=== PATIENT | female | born 1985 | race Caucasian/White ===

== ENCOUNTER → 2018-08-09 15:17 | Outpatient (CLI) | payer OTHER, BC, SELFPAY | PROVIDERS: PCP Family Medicine; Visit Provider Obstetrics & Gynecology | DX: O20.9 Hemorrhage in early pregnancy, unspecified (principal) | CPT/HCPCS: 36415; 84702 ==

== ENCOUNTER → 2018-08-13 12:36 | Outpatient (CLI) | payer OTHER, BC, SELFPAY ==
[2018-08-13 15:22] LABS: HCG Quantitative /Beta subunit 57.09 mIU/mL
== END ==
PROVIDERS: PCP Family Medicine; Visit Provider Obstetrics & Gynecology
DX: O20.9 Hemorrhage in early pregnancy, unspecified (principal)
CPT/HCPCS: 36415; 84702

== ENCOUNTER → 2019-05-17 17:06 | Outpatient (CLI) | payer BC, SELFPAY ==
[2019-05-17 17:51] LABS: Add Manual Diff / Slide Review NO; Basophils Absolute Auto 0 /uL (0-100); Basophils Percent Auto 0.4 % (0-2); Eosinophils Absolute Auto 300 /uL (0-450); Hematocrit 39.5 % (36-46); Hemoglobin 13.6 g/dL (12.0-16.0); Lymphocytes Absolute Auto 1800 /uL (1100-4500); Lymphocytes Percent Auto 28.4 % (25-40); Mean Corpuscular HGB Conc 34.3 % (30-36); Mean Corpuscular Hemoglobin 30.3 PG (26-34); Mean Corpuscular Volume 88.1 fL (80-100); Monocytes Absolute Auto 400 /uL (0-900); Monocytes Percent Auto 6.7 % (3-14); Neutrophils Absolute Auto 3800 /uL (1500-7000); Neutrophils Percent Auto 59.5 % (50-75); Platelet Count 217 X10^3/uL (150-400); Red Blood Cell Count 4.48 X10^6/uL (4.0-5.2); Red Cell Distribution Width 12.8 % (11.6-14.8); White Blood Cell Count 6.4 X10^3/uL (4.5-11.0)
[2019-05-17 18:21] LABS: Alanine Aminotransferase 20 IU/L (<35); Albumin 4.3 g/dL (3.5-5.0); Albumin Globulin Ratio 1.3 (1.0-2.8); Alkaline Phosphatase 34 U/L (38-126); Aspartate Aminotransferase 25 IU/L (14-36); BUN Creatinine Ratio 20.3 (6-22); Bilirubin Total 0.4 mg/dL (0.2-1.3); Blood Urea Nitrogen 12 mg/dL (7-17); Calcium 9.3 mg/dL (8.4-10.2); Carbon Dioxide 27 mmol/L (22-32); Chloride 100 mmol/L (98-107); Estimated Glomerular Filt Rate > 60.0 mL/min (>60); Globulin 3.2 g/dL (1.7-4.1); Glucose 94 mg/dL (70-100); HEMOLYSIS < 15 (0-50); Potassium 4.1 mmol/L (3.4-5.1); Sodium 135 mmol/L (137-145); Total Protein 7.5 g/dL (6.3-8.2)
[2019-05-17 18:34] LABS: Free T3, Triiodothyronine Free 3.18 pg/mL (2.77-5.27); Free T4, Direct Thyroxine 1.02 ng/dL (0.78-2.19)
[2019-05-17 18:47] LABS: TSH w/ Reflex to FT4 2.62 uIU/mL (0.47-4.68)
== END ==
PROVIDERS: PCP Family Medicine; Referring Provider Family Medicine; Visit Provider Family Medicine
DX: N97.9 Female infertility, unspecified (principal)
CPT/HCPCS: 36415; 80053; 84439; 84443; 84481; 85025

== ENCOUNTER → 2019-08-04 15:13 | Outpatient (CLI) | payer BC, SELFPAY ==
[2019-08-04 16:00] LABS: Appearance Urine UA CLEAR; Bilirubin Urine UA NEGATIVE (NEGATIVE); Color Urine UA YELLOW; Glucose Urine UA NEGATIVE (Negative); Ketones Urine UA NEGATIVE (NEGATIVE); Leukocyte Esterase Urine UA NEGATIVE (NEGATIVE); Nitrite Urine UA NEGATIVE (Negative); Occult Blood Urine UA NEGATIVE (Negative); Protein Urine UA NEGATIVE (Negative); Specific Gravity Urine UA <=1.005 (1.000-1.035); Urobilinogen Urine UA 0.2 E.U./dL (0.2)
[2019-08-04 16:03] LABS: pH Urine UA 6.5 (4.5-8.0)
[2019-08-04 16:04] LABS: Add Manual Diff / Slide Review NO; Basophils Absolute Auto 0 /uL (0-100); Basophils Percent Auto 0.3 % (0-2); Eosinophils Absolute Auto 100 /uL (0-450); Eosinophils Percent Auto 1.7 % (2-4); Hematocrit 35.2 % (36-46); Hemoglobin 12.7 g/dL (12.0-16.0); Lymphocytes Absolute Auto 1500 /uL (1100-4500); Lymphocytes Percent Auto 20.5 % (25-40); Mean Corpuscular Hemoglobin 30.9 PG (26-34); Monocytes Absolute Auto 400 /uL (0-900); Monocytes Percent Auto 5.6 % (3-14); Neutrophils Absolute Auto 5400 /uL (1500-7000); Neutrophils Percent Auto 71.9 % (50-75); Platelet Count 205 X10^3/uL (150-400); Red Blood Cell Count 4.09 X10^6/uL (4.0-5.2); Red Cell Distribution Width 12.7 % (11.6-14.8); White Blood Cell Count 7.5 X10^3/uL (4.5-11.0)
[2019-08-04 16:37] LABS: Free T4, Direct Thyroxine 1.12 ng/dL (0.78-2.19)
[2019-08-04 16:51] LABS: Thyroid Stimulating Hormone 2.89 uIU/mL (0.47-4.68)
[2019-08-04 17:08] LABS: Hepatitis B Surface Antigen NEGATIVE s/c (NEGATIVE); Rubella Antibody IgG 15.1 IU/mL (>15)
[2019-08-04 17:11] LABS: HIV 1 & 2 Ab/Ag 4th Gen Combo NEGATIVE (NEGATIVE); Hep C Virus Ab w/Reflex Quant NEGATIVE s/c (NEGATIVE)
[2019-08-05 04:36] LABS: RPR Screen Non Reactive (Non Reactive)
[2019-08-05 10:47] LABS: Varicella IgG Antibody 347 index (Immune >165)
== END ==
PROVIDERS: PCP Family Medicine; Referring Provider Obstetrics & Gynecology; Visit Provider Obstetrics & Gynecology
DX: Z34.91 Encounter for supervision of normal pregnancy, unspecified, first trimester (principal)
CPT/HCPCS: 36415; 80055; 81003; 84439; 84443; 86787; 86803; 86850; 86900; 86901; 87086; 87389

== ENCOUNTER → 2019-08-17 12:40 | Outpatient (CLI) | payer BC, SELFPAY | PROVIDERS: PCP Family Medicine; Referring Provider Obstetrics & Gynecology; Visit Provider Obstetrics & Gynecology | DX: O09.521 Supervision of elderly multigravida, first trimester (principal); Z36.0 Encounter for antenatal screening for chromosomal anomalies | CPT/HCPCS: 36415; 81420 ==

== ENCOUNTER → 2019-09-29 09:33 | Outpatient (CLI) | payer BC, SELFPAY ==
[2019-10-03 20:36] LABS: Gest Age on Col Date 16.4 weeks (.); Insulin Dep Diabetes No (.); OSBR Risk 1IN 10000 (.); Results Report (.); Test Results *Screen Negative* (.)
== END ==
PROVIDERS: PCP Family Medicine; Referring Provider Obstetrics & Gynecology; Visit Provider Obstetrics & Gynecology
DX: Z34.82 Encounter for supervision of other normal pregnancy, second trimester (principal); Z3A.16 16 weeks gestation of pregnancy
CPT/HCPCS: 36415; 82105

== ENCOUNTER → 2019-10-27 07:47 | Outpatient (CLI) | payer BC, SELFPAY ==
--- NOTE | 2019-10-27 07:49 | DI.US.S_ITS ---
PROCEDURE: US OB >= 14 WEEKS FETUS INDICATIONS: ANATOMY OUTSIDE/PRIOR DATING DATA: Last menstrual period (LMP): 06/06/19. LMP-based estimated date of delivery (NAOMIE): 03/12/20 . First dating scan (date and location): 10/27/19 . Estimated date of delivery (NAOMIE) from first dating scan: 03/11/20 . TECHNIQUE: Real-time scanning was performed of the fetus, with image documentation and biometric measurements. Endovaginal scanning: Not performed COMPARISON: [facility], , OB >= 14 WEEKS FETUS, 10/05/2019, 14:49. FINDINGS: General: A single living intrauterine gestation is present. Presentation: Variable including vertex and breech. Placenta: Placental position is posterior , without previa. Amniotic fluid index: 16.8 cm, normal range is 5-24 cm. heart rate: 132 beats per minute. Maternal cervical canal: 3.6 cm long. Normal lower limit is 2.5 cm. biometrics: Biparietal diameter: 4.8 cm, 20 weeks 4 days Head circumference: 18.1 cm, 20 weeks 4 days Abdominal circumference: 15.8 cm, 20 weeks 6 days Femur length: 3.4 cm, 20 weeks 3 days Estimated gestational age from initial scan: not applicable. Composite gestational age from present scan: 20 weeks 4 days Estimated weight and percentile: 371 g, 60th percentile Measurement variability for biometric dating: +/- 7 days from 14 weeks to 15 weeks 6 days gestation, +/- 10 days from 16 weeks to 21 weeks 6 days gestation, +/- 2 weeks from 22 weeks to 27 weeks 6 days gestation, +/- 3 weeks for 28 weeks gestation or later. weight reference: 4500 g or EFW >90/95% is considered macrosomia or large for gestational age. EFW <10% is small for gestational age. EFW 5% or less is considered intra-uterine growth restriction. Anatomic survey: Neuro: Ventricles are non-dilated at less than 10 mm. Cisterna magna is normal at 3-11 mm. Cerebellum is normal in size and morphology. Nuchal skin fold: Normal at less than 6 mm between 14-21 weeks gestational age. Face: Nose and lips, facial profile are normal. Spine: No evidence for spina bifida. Heart: 4-chambered heart is present, with normal ventricular outflow tracts. Intracardiac echogenic focus is noted within the left ventricle. Diaphragm: Diaphragm is intact. Stomach: Left-sided stomach is present. Kidneys: No hydronephrosis. Normal is less than 5 mm in 2nd trimester, less than 7 mm in 3rd trimester. Cord: 3-vessel cord has orthotopic insertion. Bladder: Normal in size. Extremities: All 4 extremities identified. IMPRESSION: Single living intrauterine fetus in variable presentation (including vertex and breech during the time of the examination) Technically nonspecific intracardiac echogenic focus, recommend correlation with aneuploidy screening results Elsewhere, normal anatomic survey Dictated by: Gilbert Gurrola M.D. on 10/27/2019 at 14:07 Approved by: Gilbert Gurrola M.D. on 10/27/2019 at 14:11
== END ==
PROVIDERS: PCP Family Medicine; Referring Provider Obstetrics & Gynecology; Visit Provider Obstetrics & Gynecology
DX: Z34.82 Encounter for supervision of other normal pregnancy, second trimester (principal); Z3A.20 20 weeks gestation of pregnancy
CPT/HCPCS: 76811

== ENCOUNTER → 2019-11-28 12:45 | Outpatient (CLI) | payer BC, SELFPAY ==
[2019-11-28 14:13] LABS: Free T4, Direct Thyroxine 0.85 ng/dL (0.78-2.19)
[2019-11-28 14:27] LABS: Thyroid Stimulating Hormone 2.01 uIU/mL (0.47-4.68)
== END ==
PROVIDERS: PCP Family Medicine; Referring Provider Obstetrics & Gynecology; Visit Provider Obstetrics & Gynecology
DX: O26.899 Other specified pregnancy related conditions, unspecified trimester (principal); E03.9 Hypothyroidism, unspecified; Z67.91 Unspecified blood type, Rh negative
CPT/HCPCS: 36415; 84439; 84443; 86850

== ENCOUNTER → 2019-12-12 07:47 | Outpatient (CLI) | payer BC, SELFPAY ==
[2019-12-12 10:15] LABS: Hematocrit 32.6 % (36-46); Hemoglobin 11.3 g/dL (12.0-16.0)
[2019-12-12 10:48] LABS: GTT (PREG) 1 Hour PP 50gm Dose 101 mg/dL (76-139)
== END ==
PROVIDERS: PCP Family Medicine; Referring Provider Obstetrics & Gynecology; Visit Provider Obstetrics & Gynecology
DX: Z34.82 Encounter for supervision of other normal pregnancy, second trimester (principal); Z3A.26 26 weeks gestation of pregnancy
CPT/HCPCS: 36415; 82950; 85014; 85018; 86850

== ENCOUNTER → 2020-02-07 16:58 | Outpatient (CLI) | payer OTHER, BC, SELFPAY ==
[2020-02-08 13:06] LABS: Strep Grp B PCR NEG for Grp B Strep
== END ==
PROVIDERS: PCP Family Medicine; Visit Provider Obstetrics & Gynecology
DX: Z34.83 Encounter for supervision of other normal pregnancy, third trimester (principal); Z3A.35 35 weeks gestation of pregnancy
CPT/HCPCS: 87653

== ENCOUNTER → 2020-03-02 15:08 | Outpatient (CLI) | payer OTHER, BC, SELFPAY ==
[2020-03-02 15:57] LABS: COVID19 -Nasal RAPID Negative (Negative)
== END ==
PROVIDERS: PCP Family Medicine; Visit Provider Obstetrics & Gynecology
DX: Z01.812 Encounter for preprocedural laboratory examination (principal); Z20.822 Contact with and (suspected) exposure to COVID-19
CPT/HCPCS: 87635

== ENCOUNTER 2020-03-05 05:59 | Inpatient (IN) | payer OTHER, BC, SELFPAY ==
[2020-03-05 06:32] LABS: Add Manual Diff / Slide Review NO; Basophils Absolute Auto 0 /uL (0-100); Basophils Percent Auto 0.5 % (0-2); Eosinophils Absolute Auto 200 /uL (0-450); Eosinophils Percent Auto 1.8 % (2-4); Hematocrit 35.9 % (36-46); Hemoglobin 12.3 g/dL (12.0-16.0); Lymphocytes Absolute Auto 1700 /uL (1100-4500); Lymphocytes Percent Auto 19.8 % (25-40); Mean Corpuscular HGB Conc 34.4 % (30-36); Mean Corpuscular Hemoglobin 30.7 PG (26-34); Mean Corpuscular Volume 89.4 fL (80-100); Monocytes Absolute Auto 500 /uL (0-900); Monocytes Percent Auto 5.8 % (3-14); Neutrophils Absolute Auto 6200 /uL (1500-7000); Neutrophils Percent Auto 72.1 % (50-75); Platelet Count 133 X10^3/uL (150-400); Red Blood Cell Count 4.01 X10^6/uL (4.0-5.2); Red Cell Distribution Width 13.2 % (11.6-14.8); White Blood Cell Count 8.6 X10^3/uL (4.5-11.0)
--- NOTE | 2020-03-05 07:29 | PM.PREOP ---
Pre-operative Note COVID-19 COVID-19 status: Negative Result date/Date tested (Pos, Neg/Pending): 03/02/20 Interval Note History & Physical reviewed/Exam performed by Physician: Yes Changes to H&P: No
[2020-03-05] MEDS: CEFAZOLIN 2 GM/100 ML FROZ.PIGGY IV (09:32)
--- NOTE | 2020-03-05 09:38 | SUR.OPER ---
Supine on Padded OR bed, head on pillow, safety belt at thigh, arms secured on padded arm boards at <90 degrees abduction. Bump under right buttock. Legs uncrossed with pillow under knees, gel pad to heels, tape over blanket to lower legs.
[2020-03-05] MEDS: LACTATED RINGERS 1,000 ML 100 ML IV ×3 (09:40→11:41)
--- NOTE | 2020-03-05 10:08 | SUR.OPER ---
FHT: 140, live of female at 10:01 am.
--- NOTE | 2020-03-05 10:36 | P.OP_ITS ---
Operative Date/Time/Diagnoses Date of procedure: 03/05/20 Time of procedure: 10:36 Pre-op diagnosis: 39 weeks gestation Previous C section Post-op diagnosis: same Procedure & Clinicians Procedure: Procedures Operation Date: 03/05/20 07:45 Actual Procedures Side Surgeon p Section Marie Granados MD Indications: Thirty-nine weeks gestation Previous section Surgeon: Marie Granados Speed Reading Teacher: Sheri Garza Anesthesia Type: Spinal Operative Notes Findings: Live female in the direct occiput posterior presentation Normal uterus, tubes, and ovaries Fascial adhesions Bladder to uterine adhesions Closure Type: primary Specimen(s): other (Placenta, cord blood) Applied: catheter (To continuous drainage) Estimated blood loss (mL): 300 Blood products transfused: none Procedure in detail: The patient was taken to the operating room where she was placed in the seated position. Spinal anesthesia with Duramorph was administered. The patient was then placed in the dorsal supine position with a leftward tilt. She was prepped and draped in the usual sterile fashion. A timeout was performed. After spinal analgesia was found to be adequate, a Pfannenstiel skin incision was made through the previous incision and carried through to the underlying layer fascia. The fascia was nicked in the midline, and the incision extended bilaterally with the Blackwell scissors. There were adhesions in the fascia and these were taken down with the Blackwell scissors and a 10. Blade. The superior aspect of the fascial incision was grasped with a Cruz clamps, elevated, and the underlying rectus muscles dissected off sharply and bluntly. Attention was then turned to the inferior aspect of this incision which in a similar fashion was grasped with a Whiteland clamps, elevated, and the underlying rectus muscles dissected off sharply and bluntly. The rectus muscles were in the midline. The peritoneum was identified, grasped between 2 hemostats, and entered sharply with the Metzenbaum scissors high in the abdominal cavity. This incision was extended superiorly and inferiorly with good visualization of the bladder. The bladder blade was inserted. The vesicouterine peritoneum was identified, grasped with the pickup, and entered sharply with the Metzenbaum scissors. This incision was extended bilaterally, and the bladder flap was created digitally. The bladder blade was reinserted. The lower uterine segment was incised in a transverse fashion with the scalpel. Upon entering the amniotic sac there was moderate amount of clear amniotic fluid. The infant's head was delivered with vacuum assistance. The nose and mouth were suctioned with bulb suction. The remainder of the body delivered without difficulty. The cord was double clamped and cut. The infant was handed off to waiting RN and RT. The placenta was delivered manually. The uterus was cleared of all clots and debris. The uterine incision was repaired with #1 chromic in a running interlocking fashion, and a second layer the same suture was used for an imbricating layer. Hemostasis was achieved. The tubes and ovaries were examined and were found to be normal. The gutters were cleared of all clots and debris. The bladder flap was reapproximated using 2-0 Vicryl in a running fashion. The parietal peritoneum was closed using 2-0 Vicryl in a running fashion. The fascia was reapproximated using 0 Vicryl in a running fashion. The subcutaneous layer was copiously irrigated with warm normal saline. 5 simple interrupted sutures of 3-0 Vicryl were placed to reapproximate the subcutaneous layer. The skin was closed with 4-0 Biosyn in a subcuticular fashion. Steri-Strips were placed. An Aquacell dressing was placed. The uterus was expressed of a small amount of old blood. Sponge, lap, and instrument counts were correct x-2. The patient tolerated the procedure well, and was taken to PACU in stable condition. The early childhood assistant retracted during the dissection of the subcutaneous layer and fascia. The early childhood assistant put traction on the superior and inferior fascia as it was dissected off the rectus muscles. Upon entering the abdominal cavity, the early childhood assistant helped to bluntly dissect the incision. The early childhood assistant retracted bladder down after was dissected off of the uterus with the bladder blade. The early childhood assistant suctioned while the uterus was being entered. The early childhood assistant provided fundal pressure upon delivery of the baby. The early childhood assistant provided retraction on closure of the uterus in 2 layers. The early childhood assistant provided retraction for closure of the peritoneum, fascia, and subcutaneous layer. Complications: none Post-operative Condition: stable Disposition: PACU Plan for aftercare: To the center after recovery
[2020-03-05 10:38] VITALS: BP 88/48; PULSE 67; RESP 15; TEMP 36.5; O2SAT 99
[2020-03-05 10:39] VITALS: BP 91/54; PULSE 66; RESP 15; O2SAT 99
[2020-03-05 10:43] VITALS: BP 96/47; PULSE 63; RESP 14; O2SAT 99
[2020-03-05 10:53] VITALS: BP 94/58; PULSE 63; RESP 12; O2SAT 100
[2020-03-05] MEDS: ONDANSETRON 4 MG/2 ML INJ IV (11:08)
[2020-03-05 11:12] VITALS: BP 105/62; PULSE 57; RESP 10; O2SAT 100
[2020-03-05] MEDS: KETOROLAC 30 MG/ML VIAL IV ×2 (16:20→22:30)
[2020-03-05] MEDS: LANOLIN OINT 7 GM 1 APPLIC TOP (22:20)
[2020-03-06] MEDS: KETOROLAC 30 MG/ML VIAL IV (04:30)
[2020-03-06] MEDS: ACETAMINOPHEN 325 MG TABLET 650 MG PO ×3 (04:30→16:06)
[2020-03-06] MEDS: LEVOTHYROXINE 25 MCG TABLET PO (05:53)
[2020-03-06 06:52] LABS: Hematocrit 32.9 % (36-46); Hemoglobin 11.6 g/dL (12.0-16.0)
[2020-03-06] MEDS: PRENATAL VIT,CALC/IRON/FOLIC 1 TABLET 1 TAB PO (08:08)
[2020-03-06] MEDS: DOCUSATE 250 MG CAPSULE PO (08:08)
[2020-03-06] MEDS: IBUPROFEN 600 MG TABLET PO ×2 (10:24→16:06)
[2020-03-06] MEDS: RHO(D) IMMUNE GLOBULIN 1,500 UNIT SYRINGE 1500 UNIT IM (16:50)
--- NOTE | 2020-03-06 17:46 | P.DS_ITS ---
Discharge Providers Provider Date of admission: 03/05/20 05:59 Discharge Date: 03/06/20 Primary care physician: Sheri Garza DO Consults: 03/05/20 11:35 Consult to Lobster Catcher Routine Comment: Discharge provider: Marie Granados MD Summary Hospital Course Date Patient Seen: 03/06/20 Time Patient Seen: 13:00 Procedures: Thirty-nine weeks gestation Repeat low-transverse section Spinal anesthesia Hospital Course: Patient is a 34-year-old 2 para 2 who presented on March 05, 2020 for a scheduled repeat low-transverse section. She underwent this procedure without complication. Her postoperative course is unremarkable. She is voiding without catheter, tolerating a diet, without nausea or vomiting, and pain well controlled on postop day # 1. Patient and her desire to go home. Peripartum Data Infant Delivery Method: Section Laceration Description: None Episiotomy description: None Procedures: Repeat low-transverse section Spinal anesthesia complications: none [place] 1: Gender: Female Disposition of : home Status at Discharge Cognitive/behavioral status at discharge: oriented Functional status at discharge: independent ambulation Overall status at discharge: patient is progressing back to baseline Time Spent with Patient Time attestation: Total time spent providing and/or coordinating discharge ser vices: Time spent: Less than 30 minutes Objective Labs Result Diagrams: 03/06/20 06:35 Labs: Laboratory Results - last 24 hr 03/06/20 03/06/20 06:35 06:35 Hgb 11.6 L Hct 32.9 L Maternal Bleed Negative Exam Vital Signs (past 8 hours): Oxygen Delivery Method Room Air Narrative Exam Narrative: Generally: Patient is sitting up in bed, nursing infant, no acute distress Lungs: Clear to auscultation bilaterally Cardiovascular: Regular rate and rhythm Fundus: Firm at U -1 Incision: Clean dry and intact with Aquacel dressing Extremities: Trace edema, negative Homans Discharge Plan Discharge Plan Patient Disposition: Home Provider Discharge Comment: Call with fever, chills, redness or drainage around the incision, or bleeding vaginally more than a pad in an hour Ibuprofen 600 mg every 6 hours Tylenol 650 mg every 6 hours Discharge orders & Medications Prescriptions: New oxycodone 5 mg capsule 5 mg PO Q4H PRN (Reason: pain) Qty: 20 RF: 0 Continued levothyroxine 25 mcg tablet 25 mcg PO DAILY Qty: 90 RF: 1 prenat.vits,james,[id number]-[id number] Tablet 1 tab PO DAILY RF: 0 Discontinued valacyclovir 500 mg tablet 500 mg PO BID Qty: 10 RF: 3 pantoprazole 20 mg tablet,delayed release (DR/EC) 40 mg PO DAILY RF: 0 Follow up/Referrals: Marie Granados MD [Physician] - 1 Week (1 week follow up appointment for Aquacell dressing removal and check is scheduled for 03/13@1:45pm. 6 week follow up appointment with Dr. Granados scheduled for April 16@2pm.) Sheri Garza DO [Primary Care Provider] - Diet/Activity/Treatments Diet: Regular Activity: No heavy lifting. Nothing more than baby or a gal milk Skin/Wound/Dressing Care Report to your healthcare provider any signs of infection, such as:: chills, fever, increased pain, unusual drainage and unusual redness Dressing: Do not remove Visit Report/Discharge Packet Instructions: DI for , DI for Prescription Opioid Use Stand Alone Forms: Discharge: Care Discharge Data Primary Care Provider: Sheri Garza
== END 2020-03-06 17:00 | disposition home or self-care (01) | DRG 788 ==
PROVIDERS: Admitting Provider Obstetrics & Gynecology; PCP Family Medicine; Referring Provider Obstetrics & Gynecology; Visit Provider Obstetrics & Gynecology
PROC: 10D00Z1 Extraction of Products of Conception, Low, Open Approach (ICD-10-PCS; CPT 59514; principal; 2020-03-05 07:45)
DX: O34.219 Maternal care for unspecified type scar from previous cesarean delivery (principal); Z3A.39 39 weeks gestation of pregnancy; Z37.0 Single live birth; O99.284 Endocrine, nutritional and metabolic diseases complicating childbirth; E03.9 Hypothyroidism, unspecified
CPT/HCPCS: 36415; 59050; 59510; 59514; 85014; 85018; 85025; 85461; 86850; 86900; 86901; J0690; J1885; J2274; J2405; J2590; J2790; J3010

== ENCOUNTER → 2020-04-18 10:44 | Outpatient (CLI) | payer OTHER, BC, SELFPAY ==
--- NOTE | 2020-04-18 10:45 | DI.US.S_ITS ---
LIMITED ULTRASOUND OF RIGHT BREAST AND AXILLA: 04/18/2020 CLINICAL: Palpable right breast lump. No prior exams were available for comparison. Color flow and real-time ultrasound of the right breast 3 o'clock, and axilla regions were performed. Carmona scale images of the real-time examination were reviewed. No significant abnormalities were seen sonographically in the right breast. Specifically, no finding to correspond to the patient's palpable abnormality. IMPRESSION: PROBABLY BENIGN There is no sonographic correlate to the patient's palpable abnormality and no evidence of malignancy. A follow-up right ultrasound in 6 months is recommended to demonstrate stability. Findings and recommendations were conveyed to the patient at time of exam. This exam was interpreted at Station ID: [id number]. Electronically Signed By: Soledad patton/:04/18/2020 11:40:02 letter sent: Followup Recommended Ultrasound BI-RADS: 3 Probably benign
[2020-04-18 13:15] LABS: Free T4, Direct Thyroxine 1.16 ng/dL (0.78-2.19)
[2020-04-18 16:31] LABS: Thyroid Stimulating Hormone 1.68 uIU/mL (0.47-4.68)
== END ==
PROVIDERS: PCP Family Medicine; Referring Provider Obstetrics & Gynecology; Visit Provider Obstetrics & Gynecology
DX: R92.8 Other abnormal and inconclusive findings on diagnostic imaging of breast (principal); N63.10 Unspecified lump in the right breast, unspecified quadrant; E03.9 Hypothyroidism, unspecified
CPT/HCPCS: 36415; 76642; 84439; 84443

== ENCOUNTER → 2020-11-13 13:34 | Outpatient (CLI) | payer BC, SELFPAY ==
[2020-11-14 11:32] LABS: SARS CoV19 IgG Negative (Negative); SARS-CoV19- IgM Negative (Negative)
== END ==
PROVIDERS: PCP Family Medicine; Referring Provider Family Medicine; Visit Provider Family Medicine
DX: Z20.822 Contact with and (suspected) exposure to COVID-19 (principal)
CPT/HCPCS: 36415; 86769

== ENCOUNTER → 2023-12-02 16:08 | Outpatient (CLI) | payer BC, SELFPAY ==
[2023-12-02 17:13] LABS: Natera Collection Specimen Collected
[2023-12-02 17:50] LABS: Free T4, Direct Thyroxine 1.02 ng/dL (0.78-2.19)
[2023-12-02 18:03] LABS: Thyroid Stimulating Hormone 4.03 uIU/mL (0.47-4.68)
== END ==
PROVIDERS: PCP Registered Nurse; Referring Provider Specialist; Visit Provider Specialist
DX: O09.521 Supervision of elderly multigravida, first trimester (principal); E03.9 Hypothyroidism, unspecified; Z3A.11 11 weeks gestation of pregnancy
CPT/HCPCS: 36415; 84439; 84443

== ENCOUNTER → 2024-01-04 15:34 | Outpatient (CLI) | payer BC, SELFPAY ==
[2024-01-06 20:14] LABS: Gest Age on Col Date 15.9 weeks (.); Insulin Dep Diabetes No (.); OSBR Risk 1IN 4664 (.); Results Report (.); Test Results *Screen Negative* (.)
[2024-01-07 11:47] LABS: PDF SCANNED
== END ==
PROVIDERS: PCP Registered Nurse; Referring Provider Obstetrics & Gynecology; Visit Provider Obstetrics & Gynecology
DX: Z34.82 Encounter for supervision of other normal pregnancy, second trimester (principal)
CPT/HCPCS: 36415; 82105

== ENCOUNTER → 2024-02-08 13:30 | Outpatient (CLI) | payer BC, SELFPAY ==
--- NOTE | 2024-02-08 13:31 | DI.US.S_ITS ---
PROCEDURE: US OB >= 14 WEEKS FETUS INDICATIONS: 20 Week Anatomy Scan OUTSIDE/PRIOR DATING DATA: Last menstrual period (LMP): 09/15/2023. LMP-based estimated date of delivery (NAOMIE): 06/21/2024. First dating scan (date and location): 12/02/2023. Estimated date of delivery (NAOMIE) from first dating scan: 06/17/2024. The calculations are made using the working NAOMIE of 06/21/2024. TECHNIQUE: Real-time scanning was performed of the fetus, with image documentation and biometric measurements. Endovaginal scanning: No COMPARISON: [facility], , OB >= 14 WEEKS FETUS, 02/21/2020, 14:39. FINDINGS: General: A single living intrauterine gestation is present. Presentation: Variable. Placenta: Placental position is anterior , without previa. Amniotic fluid index: 18.4 cm, normal range is 5-24 cm. Single deepest vertical pocket is 5.1 cm. heart rate: 149 beats per minute. Maternal cervical canal: 4.8 cm long. Normal lower limit is 2.5 cm. biometrics: Biparietal diameter: 5.1 cm, 21 week 4 day Head circumference: 18.4 cm, 20 week 6 day Abdominal circumference: 16.5 cm, 21 week 4 day Femur length: 13.2 cm, 19 week 6 day Clinically estimated gestational age: 20 week 6 day Composite gestational age from present scan: 21 week 0 day Estimated weight and percentile: 380 g, 43 percentile Anatomic survey: Neuro: Ventricles are non-dilated at less than 10 mm. Cisterna magna is normal at 3-11 mm. Cerebellum is normal in size and morphology. Nuchal skin fold: Normal at less than 6 mm between 14-21 weeks gestational age. Face: Nose and lips, facial profile are normal. Spine: No evidence for spina bifida. Heart: 4-chambered heart is present, with normal ventricular outflow tracts. Diaphragm: Diaphragm is intact. Stomach: Left-sided stomach is present. Kidneys: No hydronephrosis. Normal is less than 5 mm in 2nd trimester, less than 7 mm in 3rd trimester. Cord: 3-vessel cord has orthotopic insertion. Bladder: Normal in size. Extremities: All 4 extremities identified. IMPRESSION: Single live intrauterine consistent with a 21 week 0 day gestation by current ultrasound Approved by: Jose Enrique Bob M.D. on 02/08/2024 at 16:41
== END ==
PROVIDERS: PCP Registered Nurse; Referring Provider Obstetrics & Gynecology; Visit Provider Obstetrics & Gynecology
DX: Z34.82 Encounter for supervision of other normal pregnancy, second trimester (principal); Z3A.21 21 weeks gestation of pregnancy
CPT/HCPCS: 76811

== ENCOUNTER → 2024-03-24 14:19 | Outpatient (CLI) | payer BC, SELFPAY ==
[2024-03-24 16:17] LABS: Hemoglobin 11.2 g/dL (12.0-16.0)
[2024-03-24 16:58] LABS: GTT (PREG) 1 Hour PP 50gm Dose 131 mg/dL (76-139)
== END ==
PROVIDERS: PCP Registered Nurse; Referring Provider Obstetrics & Gynecology; Visit Provider Obstetrics & Gynecology
DX: Z34.82 Encounter for supervision of other normal pregnancy, second trimester (principal); Z3A.26 26 weeks gestation of pregnancy
CPT/HCPCS: 36415; 82950; 85014; 85018; 86850

== ENCOUNTER → 2024-04-14 11:29 | Outpatient (CLI) | payer BC, SELFPAY ==
[2024-04-14 13:09] LABS: Free T4, Direct Thyroxine 0.79 ng/dL (0.78-2.19)
[2024-04-14 13:23] LABS: Thyroid Stimulating Hormone 2.99 uIU/mL (0.47-4.68)
== END ==
LOC: LAB 11:30
PROVIDERS: PCP Nurse Practitioner Family; Referring Provider Obstetrics & Gynecology; Visit Provider Obstetrics & Gynecology
DX: E03.9 Hypothyroidism, unspecified (principal); Z3A.27 27 weeks gestation of pregnancy
CPT/HCPCS: 36415; 84439; 84443

== ENCOUNTER → 2024-05-05 10:01 | Outpatient (CLI) | payer BC, SELFPAY ==
[2024-05-05 11:47] LABS: HEMOLYSIS < 15 (0-50); Iron 88 ug/dL (37-170)
[2024-05-05 11:57] LABS: Percent Iron Saturation 17 % (15-50); Total Iron Binding Capacity 514 ug/dL (265-497); Transferrin 458 mg/dL (206-381)
== END ==
LOC: LAB 10:01
PROVIDERS: PCP Nurse Practitioner Family; Referring Provider Obstetrics & Gynecology; Visit Provider Obstetrics & Gynecology
DX: Z34.93 Encounter for supervision of normal pregnancy, unspecified, third trimester (principal); Z3A.33 33 weeks gestation of pregnancy
CPT/HCPCS: 36415; 83540; 83550

== ENCOUNTER 2024-05-19 09:52 | Outpatient (CLI) | payer BC, SELFPAY ==
--- NOTE | 2024-05-19 10:21 | PM.OBTRLD ---
Visit Information Visit Information Date of evaluation: 05/19/24 Primary OB Provider: Nelda Brambila Reason for Evaluation: Yes non-stress test non-stress test reason: other (Advanced maternal age) Comments/Additional reasons for admission: 39-year-old 3 para 2 at 35 weeks' gestation here for nonstress test due to advanced maternal age [facility] Medical History (Updated 05/19/24 @ 10:34 by Nelda Brambila MD) IUD (intrauterine device) in place Chicken pox (~1990) Abnormal Pap smear of cervix (~2007) History of anxiety disorder (01/14/16) History of asthma (01/14/16) Surgical History (Updated 12/02/23 @ 16:08 by Nelda Brambila MD) Status post delivery (08/15/16) [place] teeth extracted (~2001) Family History (Updated 08/01/19 @ 13:25 by Christina Porter RN) Mother Hypertension Anxiety Hypothyroid Father Diabetes mellitus Autoimmune disease Grandmother Ovarian cancer Anxiety Grandfather Alzheimer's dementia Grandfather Pancreatic cancer Diabetes mellitus Grandmother Bone cancer Brother Pancreatic abnormality Pancreatitis Social History marital status: number of children: 2 household members: spouse and children lives independently: Yes caregiver/support person: Yes housing: house pets and animals: Yes (dogs, cat, chickens) education level: college (bachelor's degree) occupational status: employed (dental hygenist) current occupational exposures/hazards: Yes special jazmin needs: No travel history: recent (domestic only) seatbelt use: always helmet use: Yes water heater temp set < 120 deg: Yes working smoke detector in home: Yes fire extinguisher in home: Yes carbon monox detector in home: Yes firearms in home: Yes do you feel safe at home: Yes Smoking Status: Former smoker (quit in 19-teens) Tobacco: How many years used: 5 second hand exposure: No alcohol intake: former (~2 beers/week when not not ) substance use type: does not use during the past year weight has: remained stable well-balanced diet: daily or most days daily servings fruits/ve-4 caffeine: Yes (single AM cup coffee) Type(s) of exercise: walking and bicycling Evaluation Evaluation Baseline heart rate: 130 Variability: Moderate (11-25) monitor accelerations: Present Monitor Decelerations: Absent Contraction Frequency (minutes): 0 Category of Tracing: Reactive Status: Category l Diagnosis, Plan/Disposition Final Diagnosis (1) AMA (advanced maternal age) primigravida 35+: Status: Acute (2) History of section complicating : Status: Acute (3) Encounter for supervision of other normal , unspecified trimester: Status: Acute (4) 35 weeks gestation of : Status: Acute Plan/Disposition Plan: Reactive nonstress test patient has appointment in the office coming up OB Disposition: home
== END 2024-05-19 10:26 | disposition home or self-care (01) ==
LOC: LABOR 10:04 → OB 05-20 09:21
PROVIDERS: PCP Nurse Practitioner Family; Referring Provider Student in an Organized Health Care Education/Training Program; Visit Provider Student in an Organized Health Care Education/Training Program
DX: O09.523 Supervision of elderly multigravida, third trimester (principal); O34.219 Maternal care for unspecified type scar from previous cesarean delivery; Z3A.35 35 weeks gestation of pregnancy; O99.283 Endocrine, nutritional and metabolic diseases complicating pregnancy, third trimester; E03.9 Hypothyroidism, unspecified; Z3A.33 33 weeks gestation of pregnancy
CPT/HCPCS: 36415; 59025; 84439; 84443; 85025; G0378; G0379

== ENCOUNTER → 2024-05-19 10:59 | Outpatient (CLI) | payer BC, SELFPAY ==
[2024-05-19 12:22] LABS: Add Manual Diff / Slide Review NO; Basophils Absolute Auto 0 /uL (0-100); Basophils Percent Auto 0.2 % (0-2); Eosinophils Absolute Auto 100 /uL (0-450); Eosinophils Percent Auto 1.4 % (2-4); Hematocrit 35.3 % (36-46); Hemoglobin 12.4 g/dL (12.0-16.0); Lymphocytes Absolute Auto 1600 /uL (1100-4500); Lymphocytes Percent Auto 16.5 % (25-40); Mean Corpuscular Hemoglobin 30.8 PG (26-34); Mean Corpuscular Volume 87.8 fL (80-100); Monocytes Absolute Auto 500 /uL (0-900); Neutrophils Absolute Auto 7600 /uL (1500-7000); Neutrophils Percent Auto 76.9 % (50-75); Platelet Count 151 X10^3/uL (150-400); Red Blood Cell Count 4.02 X10^6/uL (4.0-5.2); Red Cell Distribution Width 13.2 % (11.6-14.8); White Blood Cell Count 9.8 X10^3/uL (4.5-11.0)
[2024-05-19 13:08] LABS: Free T4, Direct Thyroxine 0.89 ng/dL (0.78-2.19)
[2024-05-19 13:22] LABS: Thyroid Stimulating Hormone 2.79 uIU/mL (0.47-4.68)
== END ==
LOC: LAB 11:00
PROVIDERS: PCP Nurse Practitioner Family; Referring Provider Specialist; Visit Provider Obstetrics & Gynecology
DX: O99.283 Endocrine, nutritional and metabolic diseases complicating pregnancy, third trimester (principal); E03.9 Hypothyroidism, unspecified; Z3A.33 33 weeks gestation of pregnancy
CPT/HCPCS: 36415; 84439; 84443; 85025

== ENCOUNTER 2024-05-26 09:54 | Outpatient (CLI) | payer BC, SELFPAY | END 2024-05-26 10:31 | disposition home or self-care (01) | LOC: OB 11:49 | PROVIDERS: PCP Nurse Practitioner Family; Referring Provider Specialist; Visit Provider Specialist | DX: O09.523 Supervision of elderly multigravida, third trimester (principal); Z3A.36 36 weeks gestation of pregnancy | CPT/HCPCS: 59025; G0378; G0379 ==

== ENCOUNTER → 2024-06-02 09:53 | Outpatient (CLI) | payer BC, SELFPAY ==
[2024-06-03 09:31] LABS: Strep Grp B PCR POS for Grp B Strep
== END ==
PROVIDERS: PCP Nurse Practitioner Family; Visit Provider Specialist
DX: Z34.83 Encounter for supervision of other normal pregnancy, third trimester (principal)
CPT/HCPCS: 87653

== ENCOUNTER 2024-06-02 10:13 | Outpatient (CLI) | payer BC, SELFPAY ==
--- NOTE | 2024-06-02 10:55 | P.TNLD_ITS ---
Visit Information Visit Information Date of evaluation: 06/02/24 Primary OB Provider: Nelda Brambila Reason for Evaluation: Yes non-stress test non-stress test reason: other (Advanced maternal age) [facility] Medical History (Updated 06/02/24 @ 10:56 by Nelda Brambila MD) IUD (intrauterine device) in place Chicken pox (~1990) Abnormal Pap smear of cervix (~2007) History of anxiety disorder (01/14/16) History of asthma (01/14/16) Surgical History (Updated 12/02/23 @ 16:08 by Nelda Brambila MD) Status post delivery (08/15/16) [place] teeth extracted (~2001) Family History (Updated 08/01/19 @ 13:25 by Christina Porter RN) Mother Hypertension Anxiety Hypothyroid Father Diabetes mellitus Autoimmune disease Grandmother Ovarian cancer Anxiety Grandfather Alzheimer's dementia Grandfather Pancreatic cancer Diabetes mellitus Grandmother Bone cancer Brother Pancreatic abnormality Pancreatitis Social History marital status: number of children: 2 household members: spouse and children lives independently: Yes caregiver/support person: Yes housing: house pets and animals: Yes (dogs, cat, chickens) education level: college (bachelor's degree) occupational status: employed (dental hygenist) current occupational exposures/hazards: Yes special jazmin needs: No travel history: recent (domestic only) seatbelt use: always helmet use: Yes water heater temp set < 120 deg: Yes working smoke detector in home: Yes fire extinguisher in home: Yes carbon monox detector in home: Yes firearms in home: Yes do you feel safe at home: Yes Tobacco: How many years used: 5 second hand exposure: No alcohol intake: former (~2 beers/week when not not ) substance use type: does not use during the past year weight has: remained stable well-balanced diet: daily or most days daily servings fruits/ve-4 caffeine: Yes (single AM cup coffee) Type(s) of exercise: walking and bicycling Evaluation Evaluation Baseline heart rate: 135 Variability: Moderate (11-25) monitor accelerations: Present Monitor Decelerations: Absent Category of Tracing: Reactive Status: Category l Diagnosis, Plan/Disposition Final Diagnosis (1) AMA (advanced maternal age) primigravida 35+: Status: Acute (2) Encounter for supervision of other normal , unspecified trimester: Status: Acute (3) 37 weeks gestation of : Status: Acute Plan/Disposition Plan: Reactive nonstress test. Follow-up in 1 week. OB Disposition: home
== END 2024-06-02 10:50 | disposition home or self-care (01) ==
LOC: LABOR 10:49 → OB 12:10
PROVIDERS: PCP Nurse Practitioner Family; Referring Provider Specialist; Visit Provider Specialist
DX: O09.513 Supervision of elderly primigravida, third trimester (principal); Z3A.37 37 weeks gestation of pregnancy
CPT/HCPCS: 59025; 87653; G0378; G0379

== ENCOUNTER 2024-06-09 09:32 | Outpatient (CLI) | payer BC, SELFPAY ==
--- NOTE | 2024-06-09 10:05 | P.TNLD_ITS ---
Visit Information Visit Information Date of evaluation: 06/09/24 Primary OB Provider: Nelda Brambila Reason for Evaluation: Yes non-stress test non-stress test reason: other (Advanced maternal age) Vital Signs Vital Signs: Blood pressure 106/64, pulse 71, temperature 36.1? [facility] Medical History (Updated 06/09/24 @ 10:06 by Nelda Brambila MD) IUD (intrauterine device) in place Chicken pox (~1990) Abnormal Pap smear of cervix (~2007) History of anxiety disorder (01/14/16) History of asthma (01/14/16) Surgical History (Updated 12/02/23 @ 16:08 by Nelda Brambila MD) Status post delivery (08/15/16) [place] teeth extracted (~2001) Family History (Updated 08/01/19 @ 13:25 by Christina Porter RN) Mother Hypertension Anxiety Hypothyroid Father Diabetes mellitus Autoimmune disease Grandmother Ovarian cancer Anxiety Grandfather Alzheimer's dementia Grandfather Pancreatic cancer Diabetes mellitus Grandmother Bone cancer Brother Pancreatic abnormality Pancreatitis Social History marital status: number of children: 2 household members: spouse and children lives independently: Yes caregiver/support person: Yes housing: house pets and animals: Yes (dogs, cat, chickens) education level: college (bachelor's degree) occupational status: employed (dental hygenist) current occupational exposures/hazards: Yes special jazmin needs: No travel history: recent (domestic only) seatbelt use: always helmet use: Yes water heater temp set < 120 deg: Yes working smoke detector in home: Yes fire extinguisher in home: Yes carbon monox detector in home: Yes firearms in home: Yes do you feel safe at home: Yes Tobacco: How many years used: 5 second hand exposure: No alcohol intake: former (~2 beers/week when not not ) substance use type: does not use during the past year weight has: remained stable well-balanced diet: daily or most days daily servings fruits/ve-4 caffeine: Yes (single AM cup coffee) Type(s) of exercise: walking and bicycling Evaluation Evaluation Baseline heart rate: 120 Variability: Moderate (11-25) monitor accelerations: Present Monitor Decelerations: Absent Contraction Frequency (minutes): 11 Uterine Contraction Intensity: Mild Category of Tracing: Reactive Status: Category l Diagnosis, Plan/Disposition Final Diagnosis (1) Encounter for supervision of other normal , unspecified trimester: Status: Acute (2) History of section complicating : Status: Acute (3) AMA (advanced maternal age) primigravida 35+: Status: Acute (4) 38 weeks gestation of : Status: Acute Plan/Disposition Plan: Reactive nonstress test. OB Disposition: home
== END 2024-06-09 10:06 | disposition home or self-care (01) ==
LOC: LABOR 10:09 → OB 13:10
PROVIDERS: PCP Nurse Practitioner Family; Referring Provider Specialist; Visit Provider Specialist
DX: O34.219 Maternal care for unspecified type scar from previous cesarean delivery (principal); O09.513 Supervision of elderly primigravida, third trimester; Z3A.38 38 weeks gestation of pregnancy
CPT/HCPCS: 59025; G0378; G0379

== ENCOUNTER 2024-06-14 05:45 | Inpatient (IN) | payer BC, SELFPAY ==
--- NOTE | 2024-06-14 | PATH_ITS ---
[facility] Accession Number: [id number] No. of containers..01 Tissue . 01 Material submitted: . fallopian tube - BILATERAL FALLOPIAN TUBES . 01 Diagnosis: BILATERAL FALLOPIAN TUBES, SALPINGECTOMY: Complete cross-section of bilateral fimbriated fallopian tubes with no other significant diagnostic alterations. MRV 06/17/2024 1538 Local . 01 Electronically signed: . Dot Del Real MD, Pathologist NPI- [id number] . 01 Gross description: . Received in formalin with two identifiers and bilateral fallopian tubes, are two unoriented fimbriated fallopian tubes, 6.5 x 0.9 cm and 6.4 x 1.0 cm. Both tubes have violaceous, smooth serosa with cysts up to 0.2 cm in greatest dimension filled with clear serous fluid. The lumens are stellate and unremarkable. Miter Cutter sections to include one-half of bisected fimbriae and cross section are submitted as follows: . A1: Longer fallopian tube. A2: Clarita fallopian tube. ([id number]) /MRV 06/16/2024 1859 Local . 01 Pathologist provided ICD-10: Z30.2 . 01 CPT . 329799 Specimen Comment: A courtesy copy of this report has been sent to [phone] Performed at: [address] [address], [place], [place] [id number] MD Len Tucker MD Phone: [phone]
[2024-06-14 06:15] VITALS: BP 118/75
[2024-06-14 06:38] LABS: Add Manual Diff / Slide Review NO; Basophils Absolute Auto 0 /uL (0-100); Basophils Percent Auto 0.5 % (0-2); Eosinophils Absolute Auto 200 /uL (0-450); Eosinophils Percent Auto 2.2 % (2-4); Hematocrit 34.7 % (36-46); Hemoglobin 12.3 g/dL (12.0-16.0); Lymphocytes Absolute Auto 1500 /uL (1100-4500); Lymphocytes Percent Auto 18.8 % (25-40); Mean Corpuscular HGB Conc 35.5 % (30-36); Mean Corpuscular Hemoglobin 31.3 PG (26-34); Mean Corpuscular Volume 88.1 fL (80-100); Monocytes Absolute Auto 500 /uL (0-900); Monocytes Percent Auto 6.2 % (3-14); Neutrophils Absolute Auto 5600 /uL (1500-7000); Neutrophils Percent Auto 72.3 % (50-75); Platelet Count 124 X10^3/uL (150-400); Red Blood Cell Count 3.94 X10^6/uL (4.0-5.2); Red Cell Distribution Width 13.5 % (11.6-14.8); White Blood Cell Count 7.7 X10^3/uL (4.5-11.0)
[2024-06-14] MEDS: CITRIC ACID/SODIUM CITRATE 15 ML SOLUTION 30 ML PO (07:37)
[2024-06-14] MEDS: ACETAMINOPHEN 325 MG TABLET 975 MG PO (07:37)
--- NOTE | 2024-06-14 07:49 | P.HPOB_ITS ---
OB HPI Date/Time Date of admission: 06/14/24 Date Patient Seen: 06/14/24 Time Patient Seen: 07:49 History of Present Condition Chief complaint: INPT NAOMIE Calculator 2 Estimated Delivery Date Method Current WG Current Estimate 06/21/24 LMP (Certain) 39w 0d Estimated Gestational Age (weeks): 39 : 4 Para: 2 care: good care, initiated at week # (11), number of visits (10) and pounds weight gain (34) Dating criteria OB: LMP confirmed by 1st trimester US Ultrasounds: normal 1st trimester US and normal mid trimester US Obstetrical complications: none Medical complications OB: other (Hypothyroid) Indications Operative indications ( section): previous uterine surgery Preadmission Labs Last OB Lab Results: 2 Blood Type A Negative 06/14/24 06:25 Antibody Screen Negative 06/14/24 06:25 Hct 34.7 % (36-46) L 06/14/24 06:25 Hgb 12.3 g/dL (12.0-16.0) 06/14/24 06:25 Hep Bs Antigen Negative s/c (NEGATIVE) 08/04/19 15:22 Hepatitis C Antibody Negative s/c (NEGATIVE) 08/04/19 15:22 Rubella Antibody 15.1 IU/mL (>15) 08/04/19 15:22 VZV IgG Antibody 347 index (Immune >165) 08/04/19 15:22 Glucose 1 Hr 50 gm 131 mg/dL (76-139) 03/24/24 15:38 Group B Strep (PCR) Pos for grp b strep H 06/02/24 09:53 -: Chlamydia screen: negative, Gonorrhea screen: negative and Urine: negative -: PAP smear: Normal Genetic Screens: Cell-free DNA: Normal (Female) and Alpha-fetoprotein: Normal External Labs -: Urine: negative Prior (ies) Past Pregnancies Del. Date GA/Weeks Labor Lgth Wt Sex Route Outcome Anesthesia Place Delv Breastfeed Preg Comp Name 08/15/16 39 0 8 lb 3 oz Male live - full term spin al [place] 12 none Amanuel 08/26/18 6 spontaneous [place] spontaneous 03/05/20 39 8 lb 6 oz Female live - full term spinal IH 18 months none Lesa Delivery Date: 08/15/16 Last Updated by: Christina Porter RAnna MarieN. *Scheduled C/S Hx # Term Pregnancies: 2 Hx # Pregnancies: 0 Number of Living Children: 2 Multiple births: 0 Spontaneous abortions: 1 Ectopic pregnancies: 0 Elective abortions: 0 Evaluation Evaluation Baseline heart rate: 135 Variability: Moderate (11-25) monitor accelerations: Present Monitor Decelerations: Absent Status: Category l PFSH Medical History (Updated 06/09/24 @ 10:06 by Nelda Brambila MD) IUD (intrauterine device) in place Chicken pox (~1990) Abnormal Pap smear of cervix (~2007) History of anxiety disorder (01/14/16) History of asthma (01/14/16) Surgical History (Updated 12/02/23 @ 16:08 by Nelda Brambila MD) Status post delivery (08/15/16) [place] teeth extracted (~2001) Family History (Updated 08/01/19 @ 13:25 by Christina Porter RN) Mother Hypertension Anxiety Hypothyroid Father Diabetes mellitus Autoimmune disease Grandmother Ovarian cancer Anxiety Grandfather Alzheimer's dementia Grandfather Pancreatic cancer Diabetes mellitus Grandmother Bone cancer Brother Pancreatic abnormality Pancreatitis Social History marital status: number of children: 2 household members: spouse and children lives independently: Yes caregiver/support person: Yes housing: house pets and animals: Yes (dogs, cat, chickens) education level: college (bachelor's degree) occupational status: employed (dental hygenist) current occupational exposures/hazards: Yes special jazmin needs: No travel history: recent (domestic only) seatbelt use: always helmet use: Yes water heater temp set < 120 deg: Yes working smoke detector in home: Yes fire extinguisher in home: Yes carbon monox detector in home: Yes firearms in home: Yes do you feel safe at home: Yes Smoking Status: Former smoker Tobacco: How many years used: 5 second hand exposure: No alcohol intake: former (~2 beers/week when not not ) substance use type: does not use during the past year weight has: remained stable well-balanced diet: daily or most days daily servings fruits/ve-4 caffeine: Yes (single AM cup coffee) Type(s) of exercise: walking and bicycling Meds Home Medications and Allergies Home Medications Medication Instructions Recorded Confirmed Type prenat.vits,james,qer-fdjs-mrzyj 1 tab PO DAILY 08/01/19 06/14/24 History breast pump #1 ea 05/05/24 06/02/24 Rx Allergies Allergy/AdvReac Type Severity Reaction Status Date / Time No Known Drug Allergies Allergy Verified 06/02/24 09:51 OB Exam Narrative Exam Narrative: Generally: A well-developed, well-nourished female, no acute distress HEENT: No thyromegaly, no anterior cervical or supraclavicular lymphadenopathy. Lungs:Clear to auscultation bilaterally, no wheezes. Cardiovascular: Regular rate and rhythm, no murmurs, rubs, or gallops. Abdomen: Well-healed Pfannenstiel scars. No hepatosplenomegaly. No masses palpable. Fundal height: 39 cm. Estimated weight: 8 lb Extremities: No edema Objective Labs 06/14/24 06:25 Labs: Laboratory Results - last 24 hr 06/14/24 06:25 WBC 7.7 RBC 3.94 L Hgb 12.3 Hct 34.7 L MCV 88.1 MCH 31.3 MCHC 35.5 RDW 13.5 Plt Count 124 L Neut % (Auto) 72.3 Lymph % (Auto) 18.8 L Coal % (Auto) 6.2 Eos % (Auto) 2.2 Baso % (Auto) 0.5 Neut # (Auto) 5600 Lymph # (Auto) 1500 Coal # (Auto) 500 Eos # (Auto) 200 Baso # (Auto) 0 Blood Type A Negative Antibody Screen Negative Assessment and Plan Assessment and Plan Assessment and Plan narrative: Assessment: 39-year-old 4 para 2 at 39 weeks gestation with 2 prior sections Desires permanent sterilization Plan: Repeat low-transverse section and bilateral salpingectomy The risks, benefits, and alternatives to the procedure were explained to the patient. The risks including bleeding, infection, injury to the bowel, bladder, or ureters. She understands these risks and agrees to proceed. A full par Q was held and consent form was signed. Time-Based Coding :: [TOTAL MINUTES] spent with patient and on the chart (including review of chart, obtaining history, exam, reviewing outside data, placing orders, documenting exam and treatment plan, and counseling patient) on [DATE].
[2024-06-14] MEDS: CEFAZOLIN 2 GM/100 ML PREMIX 100 ML IV (07:52)
--- NOTE | 2024-06-14 07:54 | PM.PREOP ---
Pre-operative Note Interval Note History & Physical reviewed/Exam performed by Physician: Yes Changes to H&P: No H&P completed within 30 days and has changed as indicated here:: 06/14/24
--- NOTE | 2024-06-14 08:26 | SUR.OPER ---
baby born at 0801
[2024-06-14] MEDS: LACTATED RINGERS 1,000 ML 999 ML IV (08:49)
--- NOTE | 2024-06-14 09:11 | PM.OBCS.1 ---
Operative Date/Time/Diagnoses Date of procedure: 06/14/24 Time of procedure: 09:11 Pre-op diagnosis: Thirty-nine weeks' gestation Previous section x2 Desires permanent sterilization Post-op diagnosis: same Procedure & Clinicians Procedure: Repeat low transverse section Bilateral salpingectomy Same procedure as scheduled: Yes Indications: 39-year-old 4 para 2 at 39 weeks' gestation with 2 prior sections. Desires permanent sterilization. Surgeon: Marie Granados Click Yes if Unassisted: No Dispatcher Tow Truck: Kenna Smith Reason for Dispatcher Tow Truck: The acquisitions assistant was necessary to retract upon entry into the abdomen and uterus. She assisted with fundal pressure with delivery of the infant. She assisted with closure with retraction, clipping of suture, and closure of the contralateral fascia. Anesthesia Type: Spinal (With Duramorph) Operative Notes Findings: Live female in the IZZY presentation Closure Type: primary Specimen(s): cord blood, placenta and tubes/segments of tubes Intraoperative meds administered: Acetaminophen, Duramorph, Ketorolac and Pitocin Estimated Blood Loss (mL): 300 Blood products transfused: none Procedure in detail: The patient was taken to the operating room where she was placed in the seated position. Spinal anesthesia with Duramorph was administered. The patient was then placed in the dorsal supine position with a leftward tilt. She was prepped and draped in the usual sterile fashion. A timeout was performed. After spinal analgesia was found to be adequate, the previous Pfannenstiel scar was excised in an elliptical fashion. The incision was then carried through to the underlying layer of fascia. The fascia was nicked in the midline, and the incision extended bilaterally with the [place] scissors. The superior aspect of the fascial incision was grasped with a [place] clamps, elevated, and the underlying rectus muscles dissected off sharply and bluntly. Attention was then turned to the inferior aspect of this incision which in a similar fashion was grasped with a [place] clamps, elevated, and the underlying rectus muscles dissected off sharply and bluntly. The rectus muscles were in the midline. The bladder was found to be tacked up high. The peritoneum was entered with hemostats. This incision was extended bluntly. The bladder blade was inserted. The vesicouterine peritoneum was identified, grasped with the pickup, and entered sharply with the Metzenbaum scissors. This incision was extended bilaterally, and the bladder flap was created digitally. The bladder blade was reinserted. The lower uterine segment was incised in a transverse fashion with the scalpel. Upon entering the amniotic sac there was moderate amount of clear amniotic fluid. The 's head was delivered without difficulty. The remainder of the body delivered without difficulty and wrapped in a blanket. The cord was double clamped and cut after 1 minute. The was handed off to waiting RN and RT. The placenta was delivered by expression. The uterus was cleared of all clots and debris. The uterine incision was repaired with #1 chromic in a running interlocking fashion, and a second layer the same suture was used for an imbricating layer. Hemostasis was achieved. The tubes and ovaries were examined and were found to be normal. The left tube was grasped with a [place] and carried out to the fimbriated end. Using the hand-held LigaSure, the mesosalpinx was cauterized and cut all the way down to the cornua of the uterus. The tube was amputated at the cornua. This was repeated on the patient's right tube. The gutters were cleared of all clots and debris. The parietal peritoneum was closed using 2-0 Vicryl in a running fashion. The fascia was reapproximated using 0 Vicryl in a running fashion. The subcutaneous layer was copiously irrigated with warm normal saline. 5 simple interrupted sutures of 3-0 Vicryl were placed to reapproximate the subcutaneous layer. The skin was closed with 4-0 Monocryl in a subcuticular fashion. Mastisol and Steri-Strips were placed. An Aquacel dressing was placed. The uterus was expressed of a small amount of old blood. Sponge, lap, and instrument counts were correct x-2. The patient tolerated the procedure well, and was taken to PACU in stable condition. Complications: none [place] Baby 1: Delivery Date: 06/14/24 Delivery Time: : Gender: Female Presentation: vertex Position: Right Occiput Anterior Placental Delivery Description: Expressed Cord Vessel Description: 3 Vessels and Clamped/Cut (after one minute) score (1 min): 9 score (5 min): 9 weight: 8 lb 10.9 oz Post-operative Condition: stable Disposition: PACU Aftercare: routine postop
[2024-06-14 09:13] VITALS: BP 100/52; PULSE 71; RESP 16; TEMP 36.2; O2SAT 98
[2024-06-14 09:18] VITALS: BP 112/76; PULSE 64; RESP 11; O2SAT 98
[2024-06-14 09:23] VITALS: BP 103/64; PULSE 82; RESP 18; O2SAT 98
[2024-06-14 09:28] VITALS: BP 102/67; PULSE 68; RESP 12; TEMP 36.7; O2SAT 99
--- NOTE | 2024-06-14 09:44 | SUR.PHASEI ---
Patient transferred [facility] with L&D RNFransisca. RN present during entire phase I recovery.
[2024-06-14] MEDS: ACETAMINOPHEN 325 MG TABLET 650 MG PO ×2 (14:56→21:13)
[2024-06-14] MEDS: KETOROLAC 30 MG/ML VIAL IV ×2 (14:57→21:13)
[2024-06-15] MEDS: KETOROLAC 30 MG/ML VIAL IV (02:58)
[2024-06-15] MEDS: ACETAMINOPHEN 325 MG TABLET 650 MG PO ×3 (03:00→13:44)
[2024-06-15] MEDS: LANOLIN OINT 7 GM 1 APPLIC TOP (03:01)
[2024-06-15 06:38] LABS: Add Manual Diff / Slide Review NO; Basophils Absolute Auto 0 /uL (0-100); Basophils Percent Auto 0.3 % (0-2); Eosinophils Absolute Auto 100 /uL (0-450); Eosinophils Percent Auto 1.2 % (2-4); Hematocrit 28.2 % (36-46); Hemoglobin 10.1 g/dL (12.0-16.0); Lymphocytes Absolute Auto 1500 /uL (1100-4500); Lymphocytes Percent Auto 14.4 % (25-40); Mean Corpuscular HGB Conc 35.8 % (30-36); Mean Corpuscular Volume 89.3 fL (80-100); Monocytes Absolute Auto 600 /uL (0-900); Monocytes Percent Auto 5.8 % (3-14); Neutrophils Absolute Auto 7900 /uL (1500-7000); Neutrophils Percent Auto 78.3 % (50-75); Platelet Count 119 X10^3/uL (150-400); Red Blood Cell Count 3.17 X10^6/uL (4.0-5.2); Red Cell Distribution Width 13.6 % (11.6-14.8); White Blood Cell Count 10.1 X10^3/uL (4.5-11.0)
[2024-06-15] MEDS: IBUPROFEN 600 MG TABLET PO ×2 (08:36→13:44)
[2024-06-15] MEDS: DOCUSATE 100 MG CAPSULE PO (08:41)
[2024-06-15] MEDS: RHO(D) IMMUNE GLOBULIN 1,500 UNIT SYRINGE 1500 UNIT IM (13:46)
[2024-06-15 14:11] VITALS: BP 102/67; PULSE 68; RESP 12; TEMP 36.7
--- NOTE | 2024-06-18 17:27 | PM.OBDS.1 ---
Discharge Providers Provider Date of admission: 06/14/24 05:45 Discharge Date: 06/15/24 Primary care physician: FLORENCIO Fischer Consults: 06/14/24 09:43 Consult to Investigations Director Routine Comment: Discharge provider: Marie Granados MD Summary Hospital Course Date Patient Seen: 06/15/24 Time Patient Seen: 07:45 Diagnoses: Thirty-nine weeks' gestation Two prior sections Desires permanent sterilization Repeat low transverse section Bilateral salpingectomy Hospital Course: Patient is a 39-year-old 4 para 3 who presented on June 14, 2024 for a scheduled repeat low transverse section and bilateral salpingectomy. She underwent this procedure without complication. Her postoperative course was unremarkable and she was discharged home on postop day # 1. She was tolerating a diet. No nausea or vomiting. going well. Bleeding tapering. Passing flatus. And voiding without the catheter. She is to follow-up in 1 week for an Aquacel dressing removal. Peripartum Data Delivery Method: Section (Repeat, and bilateral salpingectomy) Procedures: Repeat low transverse section Bilateral salpingectomy Spinal anesthesia with Duramorph complications: none 1: Gender: Female Disposition of : home Status at Discharge Cognitive/behavioral status at discharge: oriented Functional status at discharge: independent ambulation Overall status at discharge: patient is progressing back to baseline Time Spent with Patient Time attestation: Total time spent providing and/or coordinating discharge services: Time spent: Less than 30 minutes Objective Labs 06/15/24 06:08 Exam Vital Signs (past 8 hours): Oxygen Delivery Method Room Air Narrative Exam Narrative: Generally: Patient is sitting up in bed, no acute distress Lungs: Clear to auscultation bilaterally Cardiovascular: Regular rate and rhythm Fundus: Firm at U -1 Incision: Clean dry and intact with Aquacel dressing Extremities: Trace edema, negative [place] Discharge Plan Discharge Plan Patient Disposition: Home Provider Discharge Comment: Call with fever, chills, redness or drainage around the incision, or bleeding vaginally more than a pad in an hour Ibuprofen 600 mg every 6 hours Tylenol 650 mg every 6 hours as needed Stool softeners as needed Discharge orders & Medications Prescriptions: New ibuprofen 600 mg tablet 600 mg PO Q6H PRN (Reason: pain) Qty: 30 2RF docusate sodium [Colace] 100 mg capsule 200 mg PO DAILY Qty: 30 0RF oxycodone 5 mg tablet 5 mg PO Q4H PRN (Reason: pain) Qty: 10 0RF Continued prenat.vits,james,gym-gptg-cgslp Tablet 1 tab PO DAILY No Action (DME) breast pump Device See Rx Instructions .ROUTE .MEDSUPPLY Qty: 1 0RF Rx Instructions: Double electric breast pump Follow up/Referrals: Marie Granados MD [Physician] - 07/21/24 2:00 pm (Please follow-up for your one week incision check and dressing removal on Monday June 17, 2024 at 1:30 pm. Please arrive at 1:15 pm! Please follow-up for your 6-week appointment on July at 2:00 pm. Please arrive at 1:45 pm! Please follow-up for your appointment on June 22, 2024 at 10:00 am. Please arrive 15 minutes early!) Diet/Activity/Treatments Diet: Regular Activity: no heavy lifting Skin/Wound/Dressing Care Report to your healthcare provider any signs of infection, such as:: chills, fever, increased pain, unusual drainage and unusual redness Dressing: Do not remove Visit Report/Discharge Packet Instructions: DI for Hemorrhage, DI for , DI for Prescription Opioid Use Stand Alone Forms: Discharge: Care, Patient Portal/API, Stroke Signs & Symptoms Discharge Data Primary Care Provider: Dionne Monaco
== END 2024-06-15 14:11 | disposition home or self-care (01) | DRG 785 ==
PROVIDERS: Specialist; Admitting Provider Obstetrics & Gynecology; PCP Nurse Practitioner Family; Referring Provider Obstetrics & Gynecology; Visit Provider Obstetrics & Gynecology
PROC: 10D00Z1 Extraction of Products of Conception, Low, Open Approach (ICD-10-PCS; CPT 59514; principal; 2024-06-14 07:45)
DX: O34.211 Maternal care for low transverse scar from previous cesarean delivery (principal); Z3A.39 39 weeks gestation of pregnancy; Z37.0 Single live birth; Z30.2 Encounter for sterilization; O99.824 Streptococcus B carrier state complicating childbirth
CPT/HCPCS: 36415; 58611; 59050; 59510; 59514; 85025; 86850; 86900; 86901; J0690; J1100; J1885; J2274; J2405; J2790